=== PATIENT | male | born 1995 | race Caucasian/White ===

== ENCOUNTER 2017-02-05 12:19 | Emergency (ER) | payer OTHER, BC ==
[~2017-02-05] VITALS: Ht 188 cm; Wt 61.2 kg
[2017-02-05] MEDS ORDERED: ONDANSETRON 4 MG/2 ML (SDV) Z0FRAN ONE (12:29)
[2017-02-05] MEDS ORDERED: fentaNYL INJECTION 100 MCG/2 ML AMP IVP ONE (12:30)
--- NOTE | 2017-02-05 12:32 | ED Syncope ---
General Chief Complaint: Dizziness/Syncope Stated Complaint: SEIZURE Source of Information: Patient Exam Limitations: No Limitations History of Present Illness Time Seen by Provider: 12:29 Initial Comments To ER per EMS from [facility] with reports of seizure-like activity. The patient's father is employed at [facility] and so the patient himself went to see the physician on site at [facility] to ask about a refill of his hydrocodone and to get a repeat CBC. During a blood draw he lost consciousness and had the typical myoclonic jerking follows this. Patient has no seizure history. He is alert and oriented and back to normal now. He reports abdominal pain rated at 7 out of 10 which has been the case with the past 2-3 weeks. He is from here but lives in [place] and was recently diagnosed with ulcerative colitis after a 35 pound weight loss this month with bloody stools. He received his first Remicade injection on 02/02/17 and is currently on prednisone as part of a taper but has not yet begun to taper is still at 40 mg daily. He is on nystatin for oral thrush secondary to prednisone use, Zofran and hydrocodone. The abdominal pain he is having currently is the same that he' s been having for the past 2-3 weeks. He continues to have bloody stools but states that they are somewhat better than they were last week. He moved back here to [place] after this diagnosis to be closer to his family for the first few weeks until his symptoms improve. Prior to the syncopal event he denies any sensation of palpitations, dyspnea, chest pain, shortness of breath. Timing/Prior Episodes: No Prior History Precipitating Factors: Other (blood draw) Loss of Consciousness: No Loss of Consciousness Current Symptoms: No Blurred Vision, No Chest Pain, No Diaphoresis, No Dizziness, No Headache, No Injury, No Lightheadedness, No Loss of Bladder Control, No Loss of Bowel Control, No Motionless, No Nausea Allergies and Home Medications Allergies Coded Allergies: Penicillins (Verified Allergy, Unknown, 02/05/17) Home Medications Hydrocodone/Acetaminophen 1 Each Tablet, 1 EACH PO Q4H PRN for PAIN-MODERATE TO SEVERE, #60 Prescribed by: AKOSUA MONTANA on 02/05/17 1240 Hydrocodone/Acetaminophen 1 Each Tablet, #15 (Reported) Ondansetron 8 Mg Tab.rapdis, 8 MG PO Q6H PRN for NAUSEA/VOMITING-1ST LINE, #30 Prescribed by: AKOSUA MONTANA on 02/05/17 1240 Prednisone 20 Mg Tab, 40 MG PO, (Reported) Constitutional: see HPI, No chills, No fever EENTM: see HPI Respiratory: no symptoms reported Cardiovascular: see HPI, No chest pain, No edema, No Hx of Intervention, No palpitations, syncope Gastrointestinal: abdominal pain, other (hematochezia) Genitourinary: no symptoms reported Musculoskeletal: no symptoms reported Skin: no symptoms reported Psychiatric/Neurological: No Symptoms Reported Physical Exam Vital Signs Vital Sign - Last 12Hours 02/05/17 12:19 Temp 97.8 Pulse 114 Resp 18 B/P (MAP) 134/74 Pulse Ox 100 O2 Delivery Room Air Capillary Refill : General Appearance: No Apparent Distress, Thin HEENT: PERRL/EOMI, TMs Normal, Normal ENT Inspection Neck: Full Range of Motion, Normal Inspection Cardiovascular: Regular Rate, Rhythm, Normal Peripheral Pulses Respiratory: Lungs Clear, Normal Breath Sounds, No Accessory Muscle Use, No Respiratory Distress Gastrointestinal: Soft, No Guarding, Tenderness (mild diffuse. no distention. normal bowel sounds. ) Neurologic/Psychiatric: Alert, Oriented x3, No Motor/Sensory Deficits Cranial Nerves: Normal Hearing, Normal Speech, PERRL Motor/Sensory: No Motor Deficit, No Sensory Deficit Skin: Normal Color, Warm/Dry Progress/Results/Core Measures Results/Orders Lab Results Laboratory Tests Test 02/05/17 12:22 Range/Units White Blood Count 14.9 H 4.3-11.0 10^3/uL Red Blood Count 3.52 L 4.35-5.85 10^6/uL Hemoglobin 10.3 L 13.3-17.7 G/DL Hematocrit 32 L 40-54 % Mean Corpuscular Volume 91 80-99 FL Mean Corpuscular Hemoglobin 29 25-34 PG Mean Corpuscular Hemoglobin Concent 32 32-36 G/DL Red Cell Distribution Width 13.8 10.0-14.5 % Platelet Count 653 H 130-400 10^3/uL Mean Platelet Volume 9.2 7.4-10.4 FL Neutrophils (%) (Auto) 71 42-75 % Lymphocytes (%) (Auto) 10 L 12-44 % Monocytes (%) (Auto) 17 H 0-12 % Eosinophils (%) (Auto) 1 0-10 % Basophils (%) (Auto) 0 0-10 % Neutrophils # (Auto) 10.7 H 1.8-7.8 X 10^3 Lymphocytes # (Auto) 1.5 1.0-4.0 X 10^3 Monocytes # (Auto) 2.6 H 0.0-1.0 X 10^3 Eosinophils # (Auto) 0.2 0.0-0.3 10^3/uL Basophils # (Auto) 0.0 0.0-0.1 10^3/uL Neutrophils % (Manual) 44 % Lymphocytes % (Manual) 10 % Monocytes % (Manual) 12 % Eosinophils % (Manual) 2 % Basophils % (Manual) 0 % Metamyelocytes % 1 % Band Neutrophils 31 % Blood Morphology Comment NORMAL Erythrocyte Sedimentation Rate 82 H 0-15 MM/HR Sodium Level 132 L 135-145 MMOL/L Potassium Level 3.5 L 3.6-5.0 MMOL/L Chloride Level 91 L 98-107 MMOL/L Carbon Dioxide Level 29 21-32 MMOL/L Anion Gap 12 5-14 MMOL/L Blood Urea Nitrogen 12 7-18 MG/DL Creatinine 0.62 0.60-1.30 MG/DL Estimat Glomerular Filtration Rate > 60 BUN/Creatinine Ratio 19 Glucose Level 139 H 70-105 MG/DL Calcium Level 9.1 8.5-10.1 MG/DL Total Bilirubin 0.6 0.1-1.0 MG/DL Aspartate Amino Transf (AST/SGOT) 6 5-34 U/L Alanine Aminotransferase (ALT/SGPT) 14 0-55 U/L Alkaline Phosphatase 84 40-136 U/L C-Reactive Protein High Sensitivity 14.25 H 0.00-0.50 MG/DL Total Protein 6.4 6.4-8.2 GM/DL Albumin 3.0 L 3.2-4.5 GM/DL My Orders Orders - AKOSUA MONTANA APRN Cbc With Automated Diff (02/05/17 12:27) Hs C Reactive Protein (02/05/17 12:27) Erythrocyte Sedimentation Rate (02/05/17 12:27) Comprehensive Metabolic Panel (02/05/17 12:27) Saline Lock/Iv-Start (02/05/17 12:27) Ct Head Wo (02/05/17 12:27) Fentanyl Injection (Sublimaze Injection (02/05/17 12:30) Ondansetron Injection (Zofran Injectio (02/05/17 12:45) Manual Differential (02/05/17 12:22) Ekg Tracing (02/05/17 12:36) Ondansetron Injection (Zofran Injectio (02/05/17 12:29) Medications Given in ED Current Medications Medications Dose Ordered Sig/Chasity Route Start Time Stop Time Status Last Admin Dose Admin Fentanyl Citrate 50 mcg ONCE ONCE IVP 02/05/17 12:30 02/05/17 12:31 DC 02/05/17 12:33 50 MCG Ondansetron HCl 8 mg ONCE ONCE IVP 02/05/17 12:45 02/05/17 12:46 DC 02/05/17 12:36 8 MG Vital Signs/I&O Vital Sign - Last 12Hours 02/05/17 12:19 Temp 97.8 Pulse 114 Resp 18 B/P (MAP) 134/74 Pulse Ox 100 O2 Delivery Room Air Diagnostic Imaging Diagonstic Imaging: CT Comments NAME: CHANTAL MEDEIROS MED REC#: [id number] PT STATUS: REG ER : 1995 PHYSICIAN: AKOSUA MONTANA APRN ADMIT DATE: 02/05/17/ER Draft Date of Exam:02/05/17 CT HEAD WO PROCEDURE: CT head without contrast. TECHNIQUE: Multiple contiguous axial images were obtained through the brain without the use of intravenous contrast. INDICATION: Syncopal episode COMPARISON: None FINDINGS: No acute intracranial hemorrhage, mass effect or edema is seen. Steve-white junction is preserved. The ventricles appear normal. No focal abnormality is suspected. The paranasal sinuses appear clear as visualized. There is minimal fluid seen within the mastoid air cells. IMPRESSION: No acute intracranial abnormality is seen. Minimal fluid is seen in the mastoid air cells. Dictated on workstation # [id number] Dict: 02/05/17 1246 Trans: 02/05/17 1250 VIRA [id number] Interpreted by: JANICE VILLA DO Electronically signed by: Departure Communication Progress Notes 1304-patient's next clinic appointment with gastroenterology is on 03/15 at 1030 a.m. His next dose of Remicade is on 02/16 at 930 a.m., then 03/15 at 930 a.m. Impression Impression: Primary Impression: Syncope and collapse Additional Impressions: Ulcerative colitis Secondary thrombocytosis Disposition: HOME, SELF-CARE Condition: Stable Departure-Patient Inst. Decision time for Depature: 12:36 Referrals: NO,LOCAL PHYSICIAN (PCP/Family) Primary Care Physician Patient Instructions: Syncope (Fainting) (DC) Add. Discharge Instructions: 1. FOllow with your doctor in circle closely 2. Return to ER for any recurrent passing out, shortness of breath, lightheadedness, or other concerns, fevers, worsening abdominal pain or any other concerns. 3. Use Pedialyte to stay hydrated as it has more electrolytes and Gatorade and may be a better choice if it's something you can tolerate. Also ensure would be good. All discharge instructions reviewed with patient and/or family. Voiced understanding. Scripts Hydrocodone/Acetaminophen ([place] 10-325 Tablet) 1 Each Tablet 1 EACH PO Q4H Y for PAIN-MODERATE TO SEVERE, #60 TAB Prov: AKOSUA MONTANA APRN 02/05/17 Ondansetron (Zofran Odt) 8 Mg Tab.rapdis 8 MG PO Q6H Y for NAUSEA/VOMITING-1ST LINE, #30 TAB Prov: AKOSUA MONTANA APRN 02/05/17 AKOSUA MONTANA APRN Feb 05, 2017 12:32
[2017-02-05 12:35] LABS: BASOPHILS % (AUTO) 0 % (0-10); EOSINOPHILS # (AUTO) 0.2 10^3/uL (0.0-0.3); EOSINOPHILS % (AUTO) 1 % (0-10); LYMPHOCYTES # (AUTO) 1.5 X 10^3 (1.0-4.0); LYMPHOCYTES % (AUTO) 10 % (12-44); MEAN CORPUSCULAR HEMOGLOBIN 29 PG (25-34); MEAN CORPUSCULAR HGB CONC 32 G/DL (32-36); MEAN CORPUSCULAR VOLUME 91 FL (80-99); MEAN PLATELET VOLUME 9.2 FL (7.4-10.4); MONOCYTES # (AUTO) 2.6 X 10^3 (0.0-1.0); MONOCYTES % (AUTO) 17 % (0-12); NEUTROPHILS # (AUTO) 10.7 X 10^3 (1.8-7.8); NEUTROPHILS % (AUTO) 71 % (42-75); PLATELET COUNT 653 10^3/uL (130-400); RED BLOOD COUNT 3.52 10^6/uL (4.35-5.85); RED CELL DISTRIBUTION WIDTH 13.8 % (10.0-14.5); WHITE BLOOD COUNT 14.9 10^3/uL (4.3-11.0)
[2017-02-05] MEDS ORDERED: ONDA8TAB9 PO (12:40)
[2017-02-05] MEDS ORDERED: HYDR-753 PO (12:40)
[2017-02-05] MEDS ORDERED: ONDANSETRON 4 MG/2 ML (SDV) Z0FRAN IVP ONE (12:45)
--- NOTE | 2017-02-05 12:51 | Diagnostic Imaging Report ---
PROCEDURE: CT head without contrast. TECHNIQUE: Multiple contiguous axial images were obtained through the brain without the use of intravenous contrast. INDICATION: Syncopal episode COMPARISON: None FINDINGS: No acute intracranial hemorrhage, mass effect or edema is seen. Steve-white junction is preserved. The ventricles appear normal. No focal abnormality is suspected. The paranasal sinuses appear clear as visualized. There is minimal fluid seen within the mastoid air cells. IMPRESSION: No acute intracranial abnormality is seen. Minimal fluid is seen in the mastoid air cells. Dictated by: Dictated on workstation # [id number]
[2017-02-05 12:53] LABS: ALANINE AMINOTRANSFERASE 14 U/L (0-55); ANION GAP 12 MMOL/L (5-14); ASPARTATE AMINO TRANSFERASE 6 U/L (5-34); BILIRUBIN,TOTAL 0.6 MG/DL (0.1-1.0); BLOOD UREA NITROGEN 12 MG/DL (7-18); BUN/CREATININE RATIO 19; CALCIUM 9.1 MG/DL (8.5-10.1); CARBON DIOXIDE 29 MMOL/L (21-32); CHLORIDE 91 MMOL/L (98-107); CREATININE SERUM 0.62 MG/DL (0.60-1.30); GFR ESTIMATED > 60; GLUCOSE 139 MG/DL (70-105); POTASSIUM 3.5 MMOL/L (3.6-5.0); SODIUM 132 MMOL/L (135-145); TOTAL PROTEIN 6.4 GM/DL (6.4-8.2); hs C REACTIVE PROTEIN 14.25 MG/DL (0.00-0.50)
[2017-02-05] MEDS ORDERED: HYDR-3820 (12:55)
[2017-02-05] MEDS ORDERED: PRD20T PO (12:56)
[2017-02-05 13:01] LABS: ERYTHROCYTE SEDIMENTATION RATE 82 MM/HR (0-15)
[2017-02-05 13:09] LABS: BAND NEUTROPHILS 31 %; BASOPHILS % (MANUAL) 0 %; EOSINOPHILS % (MANUAL) 2 %; LYMPHOCYTES % (MANUAL) 10 %; METAMYELOCYTES % 1 %; NEUTROPHILS % (MANUAL) 44 %
[2017-02-05 13:29] VITALS: BP 118/87
== END 2017-02-05 13:28 | disposition home or self-care (01) ==
LOC: EDUNIT# 12:19 → ER 12:21
DX: R55 Syncope and collapse (principal); K51.90 Ulcerative colitis, unspecified, without complications; D47.3 Essential (hemorrhagic) thrombocythemia
CPT/HCPCS: 36415; 70450; 80053; 85007; 85027; 85652; 86141; 96374; 96375

== ENCOUNTER → 2017-03-21 | Outpatient (CLI) | payer OTHER, BC ==
[~2017-03-21] MED LIST: HYDR-3820; HYDR-753 PO; ONDA8TAB9 PO; PRD20T PO
--- NOTE | 2017-03-21 17:19 | Diagnostic Imaging Report ---
INDICATION: Nonspecific TB skin test. PA and lateral chest. FINDINGS: Heart size and pulmonary vascularity are normal. Lungs are clear. There are no effusions or pneumothoraces. IMPRESSION: Negative chest. There is no radiographic evidence for tuberculosis. Dictated by: Dictated on workstation # [id number]
== END ==
LOC: RAD 16:26
PROVIDERS: ATTEND Internal Medicine Gastroenterology
DX: R76.11 Nonspecific reaction to tuberculin skin test without active tuberculosis (principal); Z79.899 Other long term (current) drug therapy
CPT/HCPCS: 71020